=== PATIENT | female | born 2000 | race Caucasian/White ===

== ENCOUNTER 2022-08-11 09:47 | Emergency (ER) | payer BC, SELFPAY ==
--- NOTE | 2022-08-11 09:56 | ED.URI ---
HPI - URI/Sore Throat General Chief Complaint: Upper Respiratory Infection Stated Complaint: strep test Time Seen by Provider: 08/11/22 09:56 Source: patient and RN notes reviewed History of Present Illness HPI Narrative: Patient is a 22-year-old female who presents to urgent care with complaints of a sore throat for 3 days. Denies any fever, nausea, vomiting. Patient has been taking Tylenol for her symptoms. No other acute complaints. No acute distress noted. Patient aware of the plan of care. Some parts of this dictation were generated by voice recognition software and may contain typographical and/or grammatical inaccuracies. Related Data Allergies Allergy/AdvReac Type Severity Reaction Status Date / Time No Known Allergies Allergy Unverified 06/20/18 15:49 Review of Systems Review of Systems: CONSTITUTIONAL: Denies fever, chills, or sweats. EYES: Denies visual changes, redness, or discharge. ENT: Denies rhinorrhea, congestion, otalgia. Reports of a sore throat CARDIOVASCULAR: Denies chest pain, palpitations, or edema. RESPIRATORY: Denies cough or dyspnea. GASTROINTESTINAL: Denies abdominal pain, nausea, vomiting, or diarrhea. GENITOURINARY: Denies dysuria or hematuria. SKIN: Denies rash or itching. MUSCULOSKELETAL: Denies back pain, joint pain, or myalgia. NEUROLOGIC: Denies headache, numbness, or weakness. All other systems reviewed are negative, except as documented in HPI. PMFSH Comments At the time of my signature, I reviewed and agree with the nursing past medical, surgical, social, and family history. There is no relevant family history pertinent to the patient complaint. Exam Narrative: GENERAL: This is a well-nourished, well-developed patient, in no apparent distress. HEAD: normocephalic, atraumatic. EYES: PERRL. Sclera clear/white. Vision is grossly intact. EARS: External ears normal, auditory canals clear and without drainage, TMs normal without perforation. Hearing grossly intact. NOSE: External nose normal with no obvious nasal discharge, nares without redness, no rhinorrhea. THROAT: Mucous membranes moist, mild erythema to posterior is moderate postnasal drainage NECK: Neck supple, non-tender without lymphadenopathy CARDIOVASCULAR: Regular rate and rhythm without murmurs, gallops, or rubs. RESPIRATORY: Clear to auscultation. Breath sounds equal bilaterally. No wheezes, rales, or rhonchi. SKIN: warm, intact with no suspicious lesions or rash, good texture and turgor. NEURO: awake, alert, and oriented to person, place and time. There were no obvious focal neurologic abnormalities. EXTREMITIES: No clubbing, cyanosis, or edema. Course Course Level of Care: Express Care Visit Vital Signs Vital signs: Vital Signs Temperature 97.7 F 08/11/22 10:14 Pulse Rate 75 08/11/22 10:14 Respiratory Rate 14 08/11/22 10:14 Blood Pressure 105/69 08/11/22 10:14 Pulse Oximetry 100 08/11/22 10:14 Oxygen Delivery Room Air 08/11/22 10:14 Temperature 97.7 F 08/11/22 10:14 Pulse Rate 75 08/11/22 10:14 Respiratory Rate 14 08/11/22 10:14 Blood Pressure 105/69 08/11/22 10:14 Pulse Oximetry 100 08/11/22 10:14 Oxygen Delivery Room Air 08/11/22 10:14 Reviewed MDM - URI/Sore Throat MDM Narrative Medical decision making narrative: Reviewed lab results with the patient. She is aware that strep swab was negative. Educated patient on culture we will call within 72 hours if culture is positive antibiotics are necessary. Use a daily antihistamine such as Claritin or Zyrtec in conjunction with Tylenol/ibuprofen. Use a humidifier at night. Follow-up with your PCP within 2-5 days or for worsening symptoms or failure to improve. Differential Diagnosis Differential diagnosis: Likely upper respiratory infection, croup, otitis media, sinusitis, viral infection, bronchitis, influenza and pharyngitis Lab Data Attestation: I reviewed the patient's lab results. Critical Care Time Critical C
[2022-08-11 10:14] VITALS: BP 105/69; PULSE 75; RESP 14; TEMP 36.5; O2SAT 100
== END 2022-08-11 10:36 | disposition home or self-care (01) ==
PROVIDERS: Emergency Provider Nurse Practitioner Family
DX: J02.9 Acute pharyngitis, unspecified (principal)
CPT/HCPCS: 87081; 87880; 99203; G0463

== ENCOUNTER 2023-10-17 12:00 | Emergency (ER) | payer BC, SELFPAY ==
[2023-10-17 12:08] VITALS: BP 128/56; PULSE 85; RESP 16; TEMP 37.1; O2SAT 99
--- NOTE | 2023-10-17 13:00 | ED.GENADULT ---
HPI - General Adult General Chief complaint: Urogenital-Female Stated complaint: STD Exposure Source: patient Mode of arrival: ambulatory Limitations: no limitations History of Present Illness HPI narrative: Patient presents requesting screening for sexually transmitted infections. She is here in the company of her female partner tested positive for chlamydia about a month ago. She was treated initially with 1 gram of azithromycin. She tested again and once again was positive for chlamydia. Both infections were vaginal specimens. She is currently on oral doxycycline and is taking as directed. She never had any symptoms. Patient states she is asymptomatic as well. They engage in oral sex but deny rectal intercourse and it seems unclear whether they have any vaginal intercourse with one another/share sex toys. Neither patient nor her partner currently have any other sex partners. Related Data Allergies Allergy/AdvReac Type Severity Reaction Status Date / Time No Known Allergies Allergy Unverified 06/20/18 15:49 Review of Systems Review of Systems: CONSTITUTIONAL: Denies fever, chills, or sweats. EYES: Denies visual changes, redness, or discharge. ENT: Denies rhinorrhea, congestion, sore throat, or otalgia. CARDIOVASCULAR: Denies chest pain, palpitations, or edema. RESPIRATORY: Denies cough or dyspnea. GASTROINTESTINAL: Denies abdominal pain, nausea, vomiting, or diarrhea. GENITOURINARY: Denies dysuria or hematuria. SKIN: Denies rash or itching. MUSCULOSKELETAL: Denies back pain, joint pain, or myalgia. NEUROLOGIC: Denies headache, numbness, dizziness, or weakness. PSYCHIATRIC: Denies anxiety or depression. PMFSH Past Medical History Medical History No pertinent past medical history Surgical History Surgical History No pertinent past surgical history Family History Family History Mother Unknown family medical history Social History Social History Gender identity (if verbalized by the patient): Female Spiritual care concerns: No Exam Narrative: GENERAL: Well-appearing, well-nourished, and in no acute distress. HEAD: Normocephalic, atraumatic. EYES: PERRLA and EOMI. ENT: Nares clear, no rhinorrhea or epistaxis. Mucous membranes moist. Oropharynx without tonsillar hypertrophy exudate or other lesions. Bilateral TMs pearly keller nonbulging NECK: Supple. No adenopathy or masses. No carotid bruits or JVD CHEST: Clear to auscultation. No respiratory distress. No wheezes rales or rhonchi HEART: Regular rate and rhythm. No murmur heard. Normal peripheral pulses. ABDOMEN: Soft, nontender, nondistended, normal active bowel sounds. EXTREMITIES: Normal range of motion. No edema. SKIN: Warm, dry, no rash. NEURO: No focal deficits. Alert and oriented x3. PSYCH: Normal mood and affect. Course Course Emergency Course: This is a 23-year-old female who presented requesting STI screening. She was exposed to chlamydia. She is asymptomatic. Throat swab and urine specimen collected today. Will treat with doxycycline x 1 week. Advised they remain sexually abstinent until one week after both individuals have completed abx therapy. Follow up with primary provider and go to the ER for worsening symptoms. Pt in agreement with plan of care. Level of Care: Express Care Visit Vital Signs Vital signs: Vital Signs Temperature 37.1 C 10/17/23 12:08 Pulse Rate 85 10/17/23 12:08 Respiratory Rate 16 10/17/23 12:08 Blood Pressure 128/56 L 10/17/23 12:08 Pulse Oximetry 99 10/17/23 12:08 Oxygen Delivery Room Air 10/17/23 12:08 Temperature 37.1 C 10/17/23 12:08 Pulse Rate 85 10/17/23 12:08 Respiratory Rate 16 10/17/23 12:08 Blood Pressure 128/56 L
[2023-10-17 21:19] LABS: Trichomonas Vag PCR NOT DETECTED (NOT DETECTE)
[2023-10-17 21:50] LABS: Chlamydia trachomatis NOT DETECTED (NOT DETECTE); Neisseria gonorrhoeae PCR NOT DETECTED (NOT DETECTE)
[2023-10-18 17:29] LABS: Chlamydia trachomatis NOT DETECTED (NOT DETECTE); Neisseria gonorrhoeae PCR NOT DETECTED (NOT DETECTE)
== END 2023-10-17 13:06 | disposition home or self-care (01) ==
PROVIDERS: Emergency Provider Nurse Practitioner; PCP Family Medicine
DX: Z20.2 Contact with and (suspected) exposure to infections with a predominantly sexual mode of transmission (principal)
CPT/HCPCS: 87491; 87591; 87661; 99213; G0463

== ENCOUNTER 2024-01-09 08:55 | Emergency (ER) | payer BC, SELFPAY ==
[2024-01-09 09:08] VITALS: BP 108/68; PULSE 79; RESP 18; TEMP 37; O2SAT 100
[2024-01-09 09:31] LABS: EDSTREPNEGPOS1 Negative
--- NOTE | 2024-01-09 09:35 | ED.URI ---
HPI - URI/Sore Throat General Chief Complaint: Upper Respiratory Infection Stated Complaint: Sore Throat/Fever History of Present Illness HPI Narrative: patient is a 23-year-old female, without significant past medical history, presents to [facility] with 4 day history of sore throat, fevers, nasal congestion, dry cough and malaise without known sick contacts. She denies associated chest pain or shortness of breath, she has no nausea vomiting or diarrhea. She is taking [id number] medications for symptom relief. She denies any additional associated symptoms modifying factors. She is not . Related Data Home Medications Medication Instructions Recorded Confirmed No Home Medications 01/09/24 01/09/24 Allergies Allergy/AdvReac Type Severity Reaction Status Date / Time No Known Allergies Allergy Verified 01/09/24 09:29 Review of Systems Constitutional: Comments: Refer to HPI ENT: Comments: refer to HPI Respiratory: Comments: should her for HPI [facility] Past Medical History Medical History No pertinent past medical history Surgical History Surgical History No pertinent past surgical history Family History Family History Mother Unknown family medical history Social History Social History Gender identity (if verbalized by the patient): Female Spiritual care concerns: No Exam Const: General: healthy appearing and no acute distress Nutritional Appearance: well nourished Orientation/consciousness: patient oriented x3 Limitations: no limitations HENMT: Head: normal to inspection Ears: external ears normal and TM's normal bilaterally Face/Nose/Sinus: Normal external nose present Mouth: Yes Normal oral and palatal mucosa present Teeth and gingiva: dentition normal Throat: posterior oropharynx normal and uvula midline Eyes: Conjunctivae: conjunctivae normal Pupils: Equal, round and reactive pupils present EOM: EOMs intact bilaterally Neck: Neck: normal visual inspection, no lymphadenopathy and no meningeal signs Resp: Effort & Inspection: normal respiratory effort Auscultation: clear to auscultation bilaterally Cardio: Rate: regular rate Rhythm: regular rhythm Skin: General skin exam: normal color Rashes: no rashes Neuro: General: patient oriented x3, moves all extremities, no meningeal signs, no focal motor deficits and CN's II-XI intact bilaterally Extrem: General: normal to inspection Course Course Emergency Course: strep negative, COVID-19 positive, patient is on day 4 of her symptoms, encouraged to continue to quarantine for another day, monitoring her fever to ensure she is no longer is contagious. Patient verbalized understanding and she is agreeable plan. She will treat with Tylenol ibuprofen as directed [id number], Delsym for cough suppression the Zyrtec and/or Flonase for added nasal congestion relief. PCP follow-up in 3-5 days if symptoms are not resolving. Sooner if condition worsens in any way. ER for severe symptoms or shortness of breath. Level of Care: Express Care Visit ([id number]) Vital Signs Vital signs: Vital Signs Temperature 37.0 C 01/09/24 09:08 Pulse Rate 79 01/09/24 09:08 Respiratory Rate 18 01/09/24 09:08 Blood Pressure 108/68 01/09/24 09:08 Pulse Oximetry 100 01/09/24 09:08 Oxygen Delivery Room Air 01/09/24 09:08 Temperature 37.0 C 01/09/24 09:08 Pulse Rate 79 01/09/24 09:08 Respiratory Rate 18 01/09/24 09:08 Blood Pressure 108/68 01/09/24 09:08 Pulse Oximetry 100 01/09/24 09:08 Oxygen Delivery Room Air 01/09/24 09:08 MDM - URI/Sore Throat MDM Narrative Medical decision making narrative: COVID-19 positive, [id number]
== END 2024-01-09 09:42 | disposition home or self-care (01) ==
PROVIDERS: Emergency Provider Nurse Practitioner Family
DX: U07.1 COVID-19 (principal)
CPT/HCPCS: 87081; 87426; 87880; 99213; G0463

== ENCOUNTER 2024-07-11 23:32 | Emergency (ER) | payer OTHER, BC, SELFPAY ==
[2024-07-11 23:38] VITALS: BP 131/91; PULSE 86; RESP 22; O2SAT 100
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
[2024-07-12 00:11] VITALS: BP 132/77; PULSE 78; RESP 18; O2SAT 99
[2024-07-12] MEDS: fentaNYL CITRATE INJ (*CRX) 100 MCG/2 ML VIAL IV PUSH (00:17)
[2024-07-12 00:24] LABS: Basophils Percent Auto 0.2 % (0.2-1.2); Eosinophils Percent Auto 0.2 % (0-4.4); Hematocrit 43.2 % (37.0-47.0); Hemoglobin 14.2 g/dL (12.0-15.0); Immature Granulocyte Absolute 0.13 K/mm3 (0.00-0.031); Immature Granulocyte Percent A 1.1 % (0-0.5); Lymphocytes Absolute Auto 1.83 K/mm3 (0.9-3.2); Lymphocytes Percent Auto 15.1 % (18.3-44.2); Mean Corpuscular HGB Conc 32.9 g/dl (32-36); Mean Corpuscular Hemoglobin 28.7 pg (26-34); Mean Corpuscular Volume 87.3 fl (80-100); Mean Platelet Volume 9.4 fl (7.4-10.4); Monocytes Absolute Auto 0.6 K/mm3 (0.1-0.6); Monocytes Percent Auto 4.9 % (2.6-8.5); Neutrophils Absolute Auto 9.5 K/mm3 (1.3-6.7); Neutrophils Percent Auto 78.5 % (45.5-73.1); Platelet Count Result 332 k/mm3 (150-375); Red Blood Count 4.95 M/mm3 (4.2-5.4); Red Cell Distribution Width 13.1 % (11.5-14.5); White Blood Count 12.1 K/mm3 (4.5-10.0)
[2024-07-12 00:35] LABS: Alanine Aminotransferase 58 U/L (6-35); Albumin Level 4.9 g/dL (3.5-5.1); Alkaline Phosphatase 53 U/L (38-126); Anion Gap 12 mmol/L (4-12); Aspartate Amino Transferase 97 U/L (14-36); Bilirubin,Total 0.8 mg/dL (0.2-1.3); Blood Urea Nitrogen 8 mg/dL (7-17); Calcium 9.2 mg/dL (8.4-10.2); Carbon Dioxide 26 mmol/L (22-30); Chloride 106 mmol/L (98-107); Estimated CRCL calculation 113 ml/min; Estimated Glomerular Filt Rate > 60; Glucose 110 mg/dL (65-110); Potassium 3.7 mmol/L (3.4-5.0); Sodium 144 mmol/L (137-145)
[2024-07-12 00:37] LABS: INR 0.9; Prothrombin Time 12.9 Seconds (11.1-14.7)
[2024-07-12 00:38] LABS: Partial Thromboplastin Time 25.9 Seconds (22.3-36.8)
[2024-07-12 00:40] LABS: SPREG INTERNAL CONTROL Positive; Serum Qual hCG Negative
== END 2024-07-12 00:36 | disposition short-term general hospital (02) ==
PROVIDERS: Emergency Provider Student in an Organized Health Care Education/Training Program
DX: S29.9XXA Unspecified injury of thorax, initial encounter (principal); S19.9XXA Unspecified injury of neck, initial encounter; S20.219A Contusion of unspecified front wall of thorax, initial encounter; S00.83XA Contusion of other part of head, initial encounter; R10.9 Unspecified abdominal pain; V48.5XXA Car driver injured in noncollision transport accident in traffic accident, initial encounter
CPT/HCPCS: 36415; 71045; 72170; 80053; 84703; 85025; 85610; 85730; 96374; 99285; J3010